=== PATIENT | female | born 2005 | race Caucasian/White ===

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

== ENCOUNTER 2024-04-28 20:14 | Emergency (ER) | payer BC, SELFPAY ==
[2024-04-28 20:21] VITALS: BP 126/78; PULSE 84; RESP 18; TEMP 36.5; O2SAT 98; BMI 30.7
--- NOTE | 2024-04-28 21:08 | ED_ITS ---
HPI - Abdominal Pain General Chief Complaint: Abdominal Pain Stated Complaint: ovarian cyst-pain Time Seen by Provider: 04/28/24 20:21 History of Present Illness HPI narrative: This 18-year-old female comes in with right lower quadrant abdominal pain. She was seen in urgent care a couple days ago with the same symptoms and had a pelvic ultrasound which showed evidence of a right ovarian cyst measuring about 2 cm. She was sent home and instructed to use [id number] medicines for symptomatic relief. She comes in today because her symptoms are persistent and somewhat worse. She arrives here with normal vital signs. She states that she had a large 13 cm ovarian cyst several years ago that was surgically removed. She still has both of her ovaries. She does not report any fever or dysuria symptoms. Related Data Home Medications ?Medication ?Instructions ?Recorded ?Confirmed duloxetine 30 mg capsule,delayed 90 mg PO DAILY 07/24/22 07/24/22 release (Cymbalta) Allergies Allergy/AdvReac Type Severity Reaction Status Date / Time amoxicillin Allergy Mild Hives Verified 07/24/22 22:43 cefdinir [From Omnicef] Allergy Mild Hives Verified 07/24/22 22:43 Penicillins Allergy Mild Hives Verified 07/24/22 22:43 Review of Systems Status of ROS Reports: 10 or more systems reviewed and unremarkable except as noted in History and below Narrative Constitutional: No fevers, no weight gain or loss. Eyes: No discharge. No vision changes. HENT: No congestion, no sore throat, no ear pain. Cardiovascular: No chest pain, no palpitations. Respiratory: No shortness of breath, no wheezes, no cough. Gastrointestinal: No vomiting, no diarrhea. Right lower quadrant abdominal pain from an ovarian cyst. Genitourinary: No dysuria, no hematuria. Musculoskeletal: Normal range of motion. Skin: No rashes, no pruritis. Neurological: No dizziness, weakness, sensory change, speech change. Endo/Heme/Allergies: No bruising or bleeding. No polydipsia. Pysch: no suicidality, no anxiety, no insomnia. All other systems reviewed and are negative. [facility] Medical History (Updated 04/28/24 @ 21:13 by Xiang Parker MD) Depression ?F32.A - Depression, unspecified (ICD-10) Social History Smoking Status: Never smoker Do you use any of these nicotine containing products: None Second hand tobacco smoke exposure: No How often do you have a drink containing alcohol: monthly or less How many standard drinks containing alcohol do you have on a typical day: 1 or 2 How often do you have six or more drinks on one occasion: Never AUDIT-C Alcohol total score: 1 Non-prescribed substance use: denies use Exam Narrative: Exam Narrative: Constitutional: Well-developed, well-nourished, no acute distress. HEENT: Normocephalic, atraumatic. Neck: Normal range of motion. Nontender. Supple. Heart: Regular. No murmurs. Normal rate. Intact distal pulses. Lungs: Clear to auscultation. No chest discomfort. No wheezes, rhonchi, or rales. Abdomen: Normal bowel sounds. Tenderness in the right lower quadrant. No rebound tenderness. Genitalia: Deferred. Back: No midline tenderness. Normal range of motion. Extremities: Normal range of motion. No injury. Skin: Intact. No rash. Warm. No erythema or pallor. Neurologic: No altered sensation. No weakness. Alert and oriented. Psychiatric: No suicidality. No anxiety or depression. No insomnia. Nursing notes and vitals signs are reviewed. Const: Vital Signs, click to edit/add: Vital Signs - 24 hr 04/28/24 20:21 Temperature 97.7 F Pulse Rate [Right Pulse Oximeter] 84 Respiratory Rate 18 Blood Pressure [Ri ght Upper Arm] 126/78 Pulse Oximetry 98 Oxygen Delivery Me thod Room Air Course Vital Signs Vital signs: Initial Vital Signs Temperature 97.7 F 04/28/24 20:21 Temperature Source Temporal Artery Scan 04/28/24 20:21 Pulse Rate 84 04/28/24 20:21 Pulse Rhythm Regular 04/28/24 20:21 Respiratory Rate 18 04/28/24 20:21 Blood Pressure 126/78 04/28/24 20:21 Blood Pressure Mean 94 04/28/24 20:21 Pulse Oximetry 98 04/28/24 20:21 Oxygen Delivery Method Room Air 04/28/24 20:21 Vital Signs Temperature 97.7 F 04/28/24 20:21 Pulse Rate 84 04/28/24 20:21 Respiratory Rate 18 04/28/24 20:21 Blood Pressure 126/78 04/28/24 20:21 Pulse Oximetry 98 04/28/24 20:21 Oxygen Delivery Method Room Air 04/28/24 20:21 Temperature 97.7 F 04/28/24 20:21 Pulse Rate 84 04/28/24 20:21 Respiratory Rate 18 04/28/24 20:21 Blood Pressure 126/78 04/28/24 20:21 Pulse Oximetry 98 04/28/24 20:21 Oxygen Delivery Method Room Air 04/28/24 20:21 MDM - Abdominal Pain MDM Narrative Medical decision making narrative: This patient has sonographic evidence of an ovarian cyst on the right ovary from a visit to urgent care a few days ago. She comes in today because her pain is persistent. She arrives with normal vital signs. She has not had any fevers and her exam is not suspicious for some other cause such as appendicitis. I did discuss with her further imaging and lab options. The patient feels okay to return home and did received prescriptions for [place], Toradol, and Zofran from the [facility]. She will return if not improving or worsening symptoms happen. Discharge Plan Discharge Clinical Impression: Ovarian cyst Patient Disposition: Home, Self-Care Condition: Unchanged Additional Instructions: Take medications as needed and directed. Follow up with MD or return if symptoms are worsening. Prescriptions: No Action duloxetine [Cymbalta] 30 mg capsule,delayed release(DR/EC) 90 mg PO DAILY Follow Up/Referrals: Provider,Not a Local [Primary Care Provider] - Stand Alone Forms: [employer] Info Instructions
== END 2024-04-28 21:28 | disposition home or self-care (01) ==
LOC: ED 21:17
PROVIDERS: Emergency Provider Emergency Medicine Emergency Medical Services
DX: N83.201 Unspecified ovarian cyst, right side (principal)
CPT/HCPCS: 99283; 99284